=== PATIENT | male | born 1990 | race Caucasian/White ===

== ENCOUNTER 2017-03-18 16:33 | Emergency (ER) | payer OTHER ==
[~2017-03-18] VITALS: Ht 188 cm; Wt 114.0 kg
[2017-03-18 17:35] LABS: BLOOD UREA NITROGEN 13 mg/dL (7-18)
[2017-03-18 18:28] VITALS: BP 131/79
== END 2017-03-18 19:07 | disposition home or self-care (01) ==
LOC: ED 19:03
DX: I10 Essential (primary) hypertension (principal); F12.10 Cannabis abuse, uncomplicated
CPT/HCPCS: 36415; 71010; 80048; 82040; 84436; 84443; 85025; 93005; 99285